=== PATIENT | female | born 1960 ===

== ENCOUNTER 2021-11-11 12:15 | Inpatient (IN) | payer OTHER ==
[~2021-11-11] VITALS: Ht 157.5 cm; Wt 126.6 kg
[2021-11-11] MEDS ORDERED: TOPROL XL50 M1 PO (13:23)
[2021-11-11] MEDS ORDERED: COZAAR100 MG PO (13:24)
== END 2021-11-14 11:35 | disposition home or self-care (01) | DRG 735 ==
LOC: O/R 11-12 06:20 → SURH 11-12 07:00 → OB/GYN 11-12 18:35
PROVIDERS: ADMIT Specialist; ATTEND Specialist
PROC: 07TC4ZZ Resection of Pelvis Lymphatic, Percutaneous Endoscopic Approach (ICD-10-PCS; 2021-11-12)
PROC: 0UT7FZZ Resection of Bilateral Fallopian Tubes, Via Natural or Artificial Opening With Percutaneous Endoscopic Assistance (ICD-10-PCS; 2021-11-12)
PROC: 0UT2FZZ Resection of Bilateral Ovaries, Via Natural or Artificial Opening With Percutaneous Endoscopic Assistance (ICD-10-PCS; 2021-11-12)
PROC: 0UT9FZZ Resection of Uterus, Via Natural or Artificial Opening With Percutaneous Endoscopic Assistance (ICD-10-PCS; principal; 2021-11-12 07:00)
DX: C54.1 Malignant neoplasm of endometrium (principal); Z20.822 Contact with and (suspected) exposure to COVID-19